=== PATIENT | female | born 1985 | race American Indian/Alaskan Native ===

== ENCOUNTER 2017-06-03 21:11 | Emergency (ER) | payer MEDICAID ==
[2017-06-03 21:42] VITALS: BP 116/75; PULSE 77; RESP 18; TEMP 98.2; O2SAT 100
[2017-06-03 22:04] LABS: RBC URINE < 1 /hpf (0-3); URINE BILIRUBIN NEGATIVE (NEGATIVE); URINE BLOOD NEGATIVE (NEGATIVE); URINE COLOR Straw (YELLOW); URINE GLUCOSE (UA) NORMAL (Normal); URINE KETONE NEGATIVE (NEGATIVE); URINE LEUKOCYTE ESTERASE 1+ Leu/uL (Negative); URINE PROTEIN NEGATIVE (NEGATIVE); URINE UROBILINOGEN NORMAL mg/dL (0.2-1.0)
[2017-06-03 22:05] LABS: WBC URINE 6 /hpf (0-5)
--- NOTE | 2017-06-03 22:35 | C.PDOC ---
History Of Present Illness A 31 y/o F with a Hx of yeast infection, c/o vaginal itching and discharge since yesterday. Denies urinary symptoms, abdominal pain, fever, chills, or any other complaints. Time Seen by Provider: 06/03/17 21:45 Chief Complaint (Nursing): Female Genitourinary History Per: Patient History/Exam Limitations: no limitations Onset/Duration Of Symptoms: Days Current Symptoms Are (Timing): Still Present Severity: Mild Associated Symptoms: denies: Fever, Chills Recent travel outside of the [place]: No Additional History Per: Patient Past Medical History Reviewed: Historical Data, Nursing Documentation, Vital Signs Vital Signs: Last Vital Signs Temp 98.2 F 06/03/17 21:39 Pulse 77 06/03/17 21:39 Resp 18 06/03/17 21:39 BP 116/75 06/03/17 21:39 Pulse Ox 100 06/03/17 23:55 Family History: States: Unknown Family Hx - Social History Hx Alcohol Use: Yes Hx Substance Use: No Review Of Systems Except As Marked, All Systems Reviewed And Found Negative. Constitutional: Negative for: Fever, Chills Gastrointestinal: Negative for: Abdominal Pain Genitourinary: Positive for: Vaginal Discharge, Other (Vaginal itching). Negative for: Dysuria, Frequency, Incontinence, Hematuria Physical Exam - Physical Exam Appears: Non-toxic, No Acute Distress Skin: Warm, Dry Head: Atraumatic, Normacephalic Gastrointestinal/Abdominal: Soft, No Tenderness Pelvic: Vaginal Discharge (White thick discharge), No Cervical Motion Tenderness , No Adnexal Tenderness, Other (vulvar erythema) Neurological/Psych: Oriented x3 (Awake and alert) ED Course And Treatment O2 Sat by Pulse Oximetry: 100 (RA) Pulse Ox Interpretation: Normal Progress Note: Impression: A 31 y/o F with a Hx of yeast infection c/o vaginal itching and discharge since yesteday. Plans: UA, reassess. UA reviewed negative, HCG negative. Pt is in no acute distress at this time. Pt was instructed to follow up with [facility] [employer] for further evaluation. Reassessment Condition: Improved Disposition Counseled Patient/Family Regarding: Diagnosis, Need For Followup, Rx Given - Disposition Disposition: HOME/ ROUTINE Disposition Time: 22:32 Condition: STABLE Additional Instructions: Please follow up with POLL CLERK Johnathan probiotic Use meds as instructed Return to ER if worse Prescriptions: Fluconazole [Diflucan] 150 mg PO ONCE #3 tab Instructions: Vulvovaginal Candidiasis (ED) - Clinical Impression Clinical Impression: Vagina, candidiasis - Scribe Statement The provider has reviewed the documentation as recorded by the Scribrachele wright All medical record entries made by the Jessicaibrachele were at my direction and personally dictated by me. I have reviewed the chart and agree that the record accurately reflects my personal performance of the history, physical exam, medical decision making, and the department course for this patient. I have also personally directed, reviewed, and agree with the discharge instructions and disposition.
== END 2017-06-03 22:44 | disposition home or self-care (01) ==
LOC: C.ER 21:11
DX: B37.3 Candidiasis of vulva and vagina (principal)